=== PATIENT | female | born 1995 | race Caucasian/White ===

== ENCOUNTER 2017-02-25 20:53 | Emergency (ER) | payer BC, OTHER ==
[~2017-02-25] VITALS: Ht 160 cm; Wt 65.7 kg
[2017-02-25 20:56] VITALS: Ht 160 cm; Wt 65.7 kg
[2017-02-25] MEDS ORDERED: ALBUTEROL 0.083% (NEB) 2.5 MG/3 ML AMP HHN STA (22:19)
[2017-02-25] MEDS ORDERED: predniSONE 20 MG TAB PO ONE (22:30)
[2017-02-25] MEDS ORDERED: ACETAMINOPHEN 325 MG TAB PO ONE (22:30)
[2017-02-25] MEDS ORDERED: PRED20TA PO (22:55)
[2017-02-25] MEDS ORDERED: ALBU8.5H3 INH (22:55)
[2017-02-25] MEDS ORDERED: ACET500C5 PO (22:55)
[2017-02-25] MEDS ORDERED: OSLT75C PO (22:56)
--- NOTE | 2017-02-25 22:58 | ERD ---
ER Documentation Chief Complaint Chief Complaint cough x 4 days, hx- asthma HPI 21-year-old female presents with a cough for last 4 days and fever for last day. She has a history of asthma is out of her albuterol. She denies any vomiting, abdominal pain, urinary complaints. ROS All systems reviewed and are negative except as per history of present illness. Medications Home Meds Active Scripts Oseltamivir Phosphate* (Tamiflu*) 75 Mg Capsule, 75 MG PO BID for 5 Days, CAP Prov:MITUL WALLACE MD 02/25/17 Albuterol Sulfate* (Proair HFA*) 8.5 Gm Hfa.aer.ad, 2 PUFF INH Q4, #1 INHALER Prov:MITUL WALLACE MD 02/25/17 Prednisone* (Prednisone*) 20 Mg Tab, 40 MG PO DAILY for 4 Days, TAB Start February 26, 2017 Prov:MITUL WALLACE MD 02/25/17 Acetaminophen* (Tylophen*) 500 Mg Capsule, 1 CAP PO Q6H Y for PAIN AND OR ELEVATED TEMP, #15 CAP Prov:MITUL WALLACE MD 02/25/17 Allergies Allergies: Coded Allergies: No Known Allergy (Unverified , 02/25/17) PMhx/Soc History of Surgery: No Anesthesia Reaction: No Hx Neurological Disorder: No Hx Respiratory Disorders: Yes (Asthma ) Hx Cardiac Disorders: No Hx Psychiatric Problems: No Hx Miscellaneous Medical Probl: No Hx Alcohol Use: No Hx Substance Use: No Hx Tobacco Use: Yes (1-3 cig a day) Smoking Status: Never smoker Physical Exam Vitals Vital Signs Date Time Temp Pulse Resp B/P Pulse Ox O2 Delivery O2 Flow Rate FiO2 02/25/17 22:31 91 20 96 21 02/25/17 20:56 101.1 99 20 128/73 100 Physical Exam Const: [] Alert, [id number]. Head: Atraumatic Eyes: Normal Conjunctiva ENT: Normal External Ears, Nose and Mouth. TMs normal oropharynx normal. Neck: Full range of motion..~ No meningismus. Resp: Clear to auscultation bilaterally. Mild wheezing without rales or retractions. Cardio: Regular rate and rhythm, no murmurs Abd: Soft, non tender, non distended. Normal bowel sounds Skin: No petechiae or rashes Back: No midline or flank tenderness Ext: No cyanosis, or edema Neur: Awake and alert Psych: Normal Mood and Affect Results 24 hrs Current Medications Medications (Trade) Dose Ordered Sig/Stuart Route PRN Reason Start Time Stop Time Status Last Admin Dose Admin Acetaminophen (Tylenol Tab) 650 mg ONCE ONCE PO 02/25/17 22:30 02/25/17 22:31 DC Prednisone (Prednisone) 40 mg ONCE ONCE PO 02/25/17 22:30 02/25/17 22:31 DC Albuterol (Proventil 0.083% (Neb)) 2.5 mg ONCE STAT HHN 02/25/17 22:19 02/25/17 22:21 DC 02/25/17 22:29 Procedures/MDM Chest X-ray 1V Interpreted by me: Soft Tissue: No acute abnormalities Bones: No acute abnormalities Mediastinum/Cardiac Silhouette/Lungs: [No acute abnormalities] impression- normal 1 view chest chest x-ray Patient is given albuterol treatment, Tylenol and prednisone. Patient had clear lungs on serial exam no evidence of hypoxemia or respiratory distress.. Patient presents with history of asthma and acute URI symptoms and febrile illness, possibly influenza. Given her status she will be treated with Tamiflu , prednisone, refills of pro-air, return precautions and primary care follow- up. The patient was stable with no new complaints during the ER course. Clinically, there is no current evidence to suggest meningitis, sepsis, acute abdomen, pneumonia, acute coronary syndrome, pulmonary embolism, or any other emergent condition appearing to require further evaluation or hospitalization. The patient should certainly return for any new or worsening symptoms per the aftercare instructions. They should otherwise follow-up with her primary care doctor for reevaluation this week. Departure Diagnosis: Primary Impression: Asthma Asthma severity: unspecified severity Asthma persistence: unspecified Asthma complication type: unspecified Qualified Code: J45.909 - Asthma, unspecified asthma severity, unspecified whether complicated, unspecified whether persistent Additional Impression: Cough Condition: Stable Patient Instructions: Asthma, Acute (Adult), Fever Control (Adult) Additional Instructions: X-ray appears normal. Recheck for new or worsening symptoms or primary care doctor. MITUL WALLACE MD Feb 25, 2017 22:58
--- NOTE | 2017-02-26 06:52 | RADRPT ---
PROCEDURE: XR Chest. CLINICAL INDICATION: Shortness of breath TECHNIQUE: A single AP view of the chest was obtained. COMPARISON: None. FINDINGS: No focal airspace opacification, pleural effusion or pneumothorax is seen. The cardiomediastinal si lhouette is within normal limits for size. The osseous structures are unremarkable. IMPRESSION: Unremarkable chest x-ray. RPTAT: HH .Sahra Morejon MD, MD Date Time Electronically viewed and signed by .Sahra Morejon MD, on 02/26/2017 06:52 .G/
== END 2017-02-25 23:28 | disposition home or self-care (01) ==
LOC: FTE 20:53
DX: J45.901 Unspecified asthma with (acute) exacerbation (principal); Z87.891 Personal history of nicotine dependence
CPT/HCPCS: 71010; 94664; 99284; J7512